=== PATIENT | male | born 1995 | race Caucasian/White ===

== ENCOUNTER 2024-08-08 12:06 | Emergency (ER) | payer MEDICAID, MEDICARE ==
[2024-08-08 12:44] VITALS: BP 138/76; PULSE 52
== END 2024-08-08 13:19 | disposition home or self-care (01) ==
LOC: MW.ED 12:06
DX: T83.010A Breakdown (mechanical) of cystostomy catheter, initial encounter (principal)
CPT/HCPCS: 51705; 99282; 99283